=== PATIENT | female | born 2005 | race African-American/Black ===

== ENCOUNTER 2025-02-04 05:19 | Emergency (ER) | payer OTHER ==
[~2025-02-04] VITALS: Ht 157.5 cm; Wt 54.0 kg
[2025-02-04] MEDS ORDERED: ONDANSETRON HCL/PF 4 MG/2 ML VIAL ONE (05:49)
[2025-02-04] MEDS: ONDANSETRON HCL/PF 4 MG/2 ML VIAL IVP ONE (05:53)
[2025-02-04] MEDS: IV NS 0.9% 1,000 ML BAG IV ONE ×2 (05:53→07:29)
[2025-02-04 05:54] LABS: PLATELET COUNT (AUTO) 306 K/uL (150-450); RED BLOOD CELL COUNT(AUTO) 4.95 MIL/uL (4.0-5.2); RED CELL DISTRIBUTION WIDTH 14.4 % (11.5-15.0); WHITE BLOOD COUNT (AUTO) 10.6 K/uL (4.3-11.0)
[2025-02-04 06:01] LABS: CALCIUM, SERUM 10.0 mg/dL (8.5-10.1); CREATININE 0.8 mg/dL (0.6-1.3); SODIUM SERUM 141.0 mmol/L (136-145); UREA NITROGEN, BLOOD 10.0 mg/dL (7-18)
[2025-02-04 06:10] LABS: ASPARTATE AMINOTRANSFERASE 17.0 U/L (15-37); TOTAL PROTEIN, SERUM 8.9 g/dL (6.4-8.2)
[2025-02-04] MEDS ORDERED: MAG HYDROX/AL HYDROX/SIMETH 30 ML UDC ONE (06:33)
[2025-02-04] MEDS ORDERED: FAMOTIDINE/PF INJ 20 MG/2 ML VIAL IV ONE (06:33)
[2025-02-04] MEDS ORDERED: DICYCLOMINE HCL INJ 20 MG/2 ML AMPUL IM ONE (06:33)
[2025-02-04] MEDS ORDERED: LIDOCAINE VISCOUS 2% UD 15 ML UDC ONE (06:37)
[2025-02-04] MEDS: FAMOTIDINE/PF INJ 20 MG/2 ML VIAL IV ONE (06:45)
[2025-02-04] MEDS: LIDOCAINE VISCOUS 2% UD 15 ML UDC MM ONE (06:45)
[2025-02-04] MEDS: DICYCLOMINE HCL INJ 20 MG/2 ML AMPUL IM ONE (06:45)
[2025-02-04] MEDS: MAG HYDROX/AL HYDROX/SIMETH 30 ML UDC PO ONE (06:45)
[2025-02-04 06:53] LABS: APPEARANCE,URINE CLEAR (CLEAR); BLOOD, URINE 3+ Ery/uL (NEGATIVE); LEUKOCYTE ESTERASE ,URINE NEGATIVE (NEGATIVE); NITRITE, URINE NEGATIVE (NEGATIVE); UGLUCOSE NEGATIVE (NEGATIVE)
[2025-02-04 06:56] LABS: PREGNANCY TEST URINE QUAL NEGATIVE (NEGATIVE)
[2025-02-04 06:57] LABS: ADD URINE CULTURE NO; SQUAMOUS EPITHELIAL CELL,UR Moderate /HPF (None Seen); URINE AMORPHOUS PHOSPHATES Many /HPF (None Seen)
[2025-02-04 07:04] LABS: AMPHETAMINE, URINE NEGATIVE (NEGATIVE); BARBITURATE, URINE NEGATIVE (NEGATIVE); BENZODIAZEPINE, URINE NEGATIVE (NEGATIVE); COCCAINE, URINE NEGATIVE (NEGATIVE); OPIATE, URINE NEGATIVE (NEGATIVE)
[2025-02-04 07:14] LABS: CANNABINOID, URINE POSITIVE (NEGATIVE)
[2025-02-04] MEDS: MORPHINE SULFATE INJ 2 MG/ML DISP.SYRIN IV ONE ×2 (07:30→09:30)
[2025-02-04] MEDS ORDERED: MORPHINE SULFATE INJ 4 MG/ML DISP.SYRIN ONE (07:34)
[2025-02-04] MEDS ORDERED: MORPHINE SULFATE INJ 2 MG/ML DISP.SYRIN ONE (09:27)
[2025-02-04] MEDS ORDERED: CIPR500T5 PO (09:28)
[2025-02-04] MEDS ORDERED: METR500T PO (09:28)
[2025-02-04] MEDS ORDERED: HYDR-4303 PO (09:28)
[2025-02-04] MEDS ORDERED: ONDA4TAB5 PO (09:28)
[2025-02-04 09:56] VITALS: BP 115/74; TEMP 98.1; O2SAT 98
== END 2025-02-04 09:57 | disposition home or self-care (01) ==
LOC: EDBD 05:25 → ER 05:25
DX: K52.9 Noninfective gastroenteritis and colitis, unspecified (principal); R10.84 Generalized abdominal pain; R11.2 Nausea with vomiting, unspecified; F12.10 Cannabis abuse, uncomplicated; Z60.2 Problems related to living alone; Z79.899 Other long term (current) drug therapy
CPT/HCPCS: 99285; 96372; 96374; 96361; 96375; 96376; 76856; 74176; 85025; 80048; 87086; 83690; 80076; 84703; 81001; 36415; 80320; 80307; J2270 ×2; J1308; J2405; J7030 ×2; J0500; G0480

== ENCOUNTER 2025-02-05 15:30 | Emergency (ER) | payer OTHER ==
[~2025-02-05] VITALS: Ht 160 cm; Wt 44.5 kg
[~2025-02-05 15:30] MED LIST: CIPR500T5 PO; HYDR-4303 PO; METR500T PO; ONDA4TAB5 PO
[2025-02-05 15:38] VITALS: BP 112/76; TEMP 98.3; O2SAT 100
== END 2025-02-05 16:34 | disposition left against medical advice (07) ==
LOC: ER 15:34
DX: R11.2 Nausea with vomiting, unspecified (principal); Z53.21 Procedure and treatment not carried out due to patient leaving prior to being seen by health care provider